=== PATIENT | male | born 1975 | race African-American/Black ===

== ENCOUNTER 2019-07-04 00:43 | Emergency (ER) | payer MEDICAID ==
[~2019-07-04] VITALS: Ht 167.6 cm; Wt 104.0 kg
[2019-07-04] MEDS ORDERED: ASPIRIN 81MG TABLET PO SCH (03:00)
[2019-07-04 04:01] VITALS: BP 104/62
[2019-07-04 04:19] LABS: BASOPHILS % 0.4 % (0.0-2.0); HEMATOCRIT. 47.2 % (42.0-52.0); HEMOGLOBIN. 15.3 g/dL (14.0-18.0); LYMPHOCYTES % 25.6 % (20.0-50.0); MEAN CORPUSCULAR HEMOGLOBIN 27.3 pg (28.0-32.0); MEAN CORPUSCULAR VOLUME 83.8 fL (80.0-94.0); MEAN PLATELET VOLUME 8.7 fl (7.4-10.4); PLATELET 194 x1000/uL (130-400); RED BLOOD CELL COUNT 5.63 mill/uL (4.7-6.1); RED CELL DISTRIBUTION WIDTH 13.9 % (11.6-14.6)
[2019-07-04 04:20] LABS: CHLORIDE 105 mEq/L (98-107)
[2019-07-04 04:22] LABS: PARTIAL THROMBOPLASTIN TIME 33.4 sec (23.4-31.0); PROTHROMBIN TIME 10.3 sec (9.6-11.0)
== END 2019-07-04 06:51 | disposition left against medical advice (07) ==
LOC: ER 00:43
DX: R07.9 Chest pain, unspecified (principal); I25.10 Atherosclerotic heart disease of native coronary artery without angina pectoris; R79.89 Other specified abnormal findings of blood chemistry; I25.2 Old myocardial infarction; Z86.79 Personal history of other diseases of the circulatory system
CPT/HCPCS: 36415; 71045; 80053; 83880; 84484; 85025; 85610; 85730; 93005; 99284; Z7610